=== PATIENT | female | born 1995 | race Caucasian/White ===

== ENCOUNTER 2017-05-28 20:15 | Emergency (ER) | payer SELFPAY ==
[~2017-05-28] VITALS: Ht 162.6 cm; Wt 68.2 kg
[2017-05-28 20:21] VITALS: BP 121/57; TEMP 98.9
[2017-05-28] MEDS ORDERED: MONONESSA 35 MC1 TA1 (20:25)
[2017-05-28] MEDS ORDERED: VENTOLIN0.09 MG IH (20:25)
[2017-05-28 23:19] VITALS: PULSE 84
== END 2017-05-28 23:19 | disposition home or self-care (01) ==
LOC: COL.ER 20:15
DX: S51.821A Laceration with foreign body of right forearm, initial encounter (principal); Z23 Encounter for immunization; W22.09XA Striking against other stationary object, initial encounter

== ENCOUNTER 2017-09-21 15:42 | Emergency (ER) | payer SELFPAY ==
[~2017-09-21] VITALS: Ht 162.6 cm; Wt 68.2 kg
[~2017-09-21 15:42] MED LIST: MONONESSA 35 MC1 TA1; VENTOLIN0.09 MG IH
[2017-09-21 15:54] VITALS: TEMP 98.2
[2017-09-21 16:48] LABS: BASO # 0.1 (0.0-0.2); BASO % 0.8 % (0.0-2.0); EOS # 0.2 (0.0-0.7); EOS % 2.1 % (0-4.0); GRAN # 5.9 (1.4-6.5); GRAN % 62.8 % (42.2-75.2); HEMATOCRIT 38.8 % (37.0-47.0); HEMOGLOBIN 13.1 g/dl (12.5-16.0); LYMPH # 2.4 (1.2-3.4); LYMPH % 25.7 % (20.0-51.0); MEAN CELL VOLUME 91 fl (80.0-100.0); MEAN CORPUSCULAR HEMOGLOBIN 31 pg (27.0-31.0); MEAN CORPUSCULAR HGB CONC 34 g/dl (33.0-37.0); MONO # 0.8 (0.1-0.6); MONO % 8.5 % (1.7-9.3); PLATELET COUNT 347 K/mm3 (130-400); RED BLOOD COUNT 4.26 M/mm3 (4.10-5.30); WHITE BLOOD COUNT 9.4 K/mm3 (4.8-10.8)
[2017-09-21 17:04] LABS: ADJUSTED CALCIUM 9.4 mg/dL (8.4-10.2); ALANINE AMINOTRANSFERASE 18 U/L (9-52); ALBUMIN 4.4 gm/dL (3.5-5.0); ALKALINE PHOSPHATASE 43 U/L (50-136); ANION GAP 11 mmol/L (7-16); BILIRUBIN,TOTAL 0.3 mg/dL (0.0-1.0); BLOOD UREA NITROGEN 10 mg/dL (7-17); CALCIUM 9.7 mg/dL (8.4-10.2); CARBON DIOXIDE 25 mmol/L (22-30); CHLORIDE 104 mmol/L (98-107); CREATININE, serum 0.87 mg/dL (0.52-1.25); GLUCOSE 101 mg/dL (74-106); POTASSIUM 3.8 mmol/L (3.4-5.0); SODIUM 140 mmol/L (137-145); TOTAL PROTEIN 7.4 gm/dL (6.4-8.2)
[2017-09-21 17:09] LABS: ACETAMINOPHEN < 10 ug/mL (10-30); ALCOHOL(ethanol),MEDICAL < 10 mg/dL; SALICYLATE < 1.0 mg/dL
[2017-09-21 17:17] LABS: AMPHETAMINE URINE NEGATIVE; BARBITURATES URINE NEGATIVE; BENZODIAZEPINES URINE NEGATIVE; BUPRENORPHINE URINE NEGATIVE; METHADONE URINE NEGATIVE; OPIATES URINE NEGATIVE; OXYCODONE URINE NEGATIVE; PHENCYCLIDINE URINE NEGATIVE; PROPOXYPHENE URINE NEGATIVE; THC CANNABINOIDS URINE NEGATIVE; TRICYCLIC ANTIDEPRESS URINE NEGATIVE
[2017-09-21 22:42] VITALS: BP 121/70; PULSE 74
== END 2017-09-21 23:30 ==
LOC: COL.ER 15:42
PROVIDERS: Physician Assistant
DX: F32.9 Major depressive disorder, single episode, unspecified (principal); R45.851 Suicidal ideations; F41.9 Anxiety disorder, unspecified; J45.909 Unspecified asthma, uncomplicated; Z32.02 Encounter for pregnancy test, result negative